=== PATIENT | female | born 1970 | race African-American/Black ===

== ENCOUNTER 2020-02-03 15:22 | Emergency (ER) | payer OTHER, SELFPAY ==
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
[2020-02-03 15:40] VITALS: BP 130/80; BP 135/85; PULSE 79; PULSE 86; RESP 18; TEMP 36.8; O2SAT 100; O2SAT 98; BMI 31.6
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
[2020-02-03 17:51] VITALS: BP 133/80; PULSE 76; RESP 18; TEMP 36.8; O2SAT 98
--- NOTE | 2020-02-03 17:51 | PC.NURSE ---
patient a&ox3, awaiting radiology results, c/o throat discomfort, vss, will continue to monitor.
== END 2020-02-03 18:26 | disposition home or self-care (01) ==
PROVIDERS: Emergency Provider Internal Medicine
DX: S06.0X0A Concussion without loss of consciousness, initial encounter (principal); S16.1XXA Strain of muscle, fascia and tendon at neck level, initial encounter; S20.213A Contusion of bilateral front wall of thorax, initial encounter; M54.2 Cervicalgia; V47.5XXA Car driver injured in collision with fixed or stationary object in traffic accident, initial encounter; Y93.9 Activity, unspecified; Y92.410 Unspecified street and highway as the place of occurrence of the external cause; Y99.9 Unspecified external cause status
CPT/HCPCS: 70450; 71046; 72125; 99284